=== PATIENT | male | born 1955 | race Caucasian/White ===

== ENCOUNTER 2022-01-02 00:06 | Day surgery (SDC) | payer MEDICARE, SELFPAY ==
[2021-12-30 18:43] VITALS: BMI 38.9
[2022-01-02] VITALS (15 sets, daily range): BP systolic 114–152; BP diastolic 63–94; PULSE 69–90; RESP 16–18; TEMP 36.3–36.6; O2SAT 95–97
[2022-01-02 10:29] LABS: Basophils Percent Auto 0.7 % (0.2-1.2); Eosinophils Absolute Auto 0.1 K/mm3 (0-0.3); Eosinophils Percent Auto 1.6 % (0-4.4); Hematocrit 52.3 % (42.0-52.0); Hemoglobin 17.9 g/dL (14.0-18.0); Immature Granulocyte Absolute 0.03 K/mm3 (0.00-0.031); Immature Granulocyte Percent A 0.5 % (0-0.5); Lymphocytes Percent Auto 28.1 % (18.3-44.2); Mean Corpuscular HGB Conc 34.2 g/dl (32-36); Mean Corpuscular Hemoglobin 30.7 pg (26-34); Mean Corpuscular Volume 89.7 fl (80-100); Mean Platelet Volume 10.2 fl (7.4-10.4); Monocytes Absolute Auto 0.5 K/mm3 (0.1-0.6); Monocytes Percent Auto 8.8 % (2.6-8.5); Neutrophils Absolute Auto 3.4 K/mm3 (1.3-6.7); Neutrophils Percent Auto 60.3 % (45.5-73.1); Platelet Count Result 216 k/mm3 (150-375); Red Blood Count 5.83 M/mm3 (4.6-6.20); Red Cell Distribution Width 13.2 % (11.5-14.5); White Blood Count 5.7 K/mm3 (4.5-10.0)
[2022-01-02 10:39] LABS: Anion Gap 9 mmol/L (8-16); Blood Urea Nitrogen 21 mg/dL (9-20); Calcium 9.2 mg/dL (8.4-10.2); Carbon Dioxide 24 mmol/L (22-30); Chloride 106 mmol/L (98-107); Estimated CRCL calculation 103 ml/min; Estimated Glomerular Filt Rate > 60; Glucose 160 mg/dL (65-110); Potassium 4.7 mmol/L (3.4-5.0); Sodium 139 mmol/L (137-145)
--- NOTE | 2022-01-02 13:48 | WPDCARDPROC ---
Cardiac Cath Procedure Note Date of procedure:: 01/02/22 Performing physician:: Remy Dowling MD Indication:: Ischemic heart disease with left ventricular systolic dysfunction nuclear stress testing suggesting progression of coronary disease Brief clinical history:: this is a 66-year-old man with coronary artery disease as well as AV node dysfunction. He was found to have angiographically mild coronary disease in 2013 along with LV systolic dysfunction and was given the diagnosis of takotsubo cardiomyopathy. In 2018 he presented with syncope and evidence of intermittent complete heart block and received a dual-chamber pacemaker. At that time his left ventricle had improved significantly with an ejection fraction of 48%. he now is reporting intermittent episodes of chest pain that are largely atypical sounding of angina however nuclear stress testing and echo show once again significant decline in LV systolic function and a follow-up angiogram has been recommended in that setting. Procedure Procedure performed:: Left ventriculogram coronary angiogram Sedation/Medication given:: fentanyl 50 mg Versed 2 mg case start time 1:23 p.m. case end time 1:40 p.m. Access site:: right femoral artery Estimated blood loss:: 25 cc Procedure note:: patient was brought to the cardiac catheterization lab in the postabsorptive state where the right femoral triangle was prepared in the normal fashion. Anesthesia was provided with 1% lidocaine infiltrated locally. Using the modified Seldinger technique a 5 [place] vascular sheath was placed into the femoral artery. After this I used a 5 [place] angled pigtail catheter to measure left-sided hemodynamics and to inject g in the EVANS projection. Following this the pigtail catheter was removed. A 5 [place] FL4 catheter was used to engage and inject the left coronary artery in multiple projections. A 5 [place] JR4 catheter was used to engage and inject the right coronary artery. The cineangiograms were then reviewed and the case was terminated. Angiogram was done of the femoral artery through the sheath after which I elected to have sheath removed removed after direct manual compression. 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 Findings:: Hemodynamics: Central aortic pressure is 136 over 74 left ventricle 136/5 end-diastolic pressure 16 there is no gradient on pullback across the aortic valve. Left ventricle: The left ventricle is severely dilated there is severe global hypocontractility in all visualized segments the ejection fraction I would visually estimate to be about 25%. The left main coronary artery is medium in caliber without significant lesion. The left anterior descending is a medium caliber artery extending down to the apex. The LAD has a proximal area of stenosis which is eccentric but it views were does well demonstrated represents 80-90% stenosis. There was CYN 3 flow in the LAD. And previous angiograms this was a mild nonobstructive lesion. Circumflex is a moderate caliber artery giving rise to the marginal branches and a posterior branch. . The largest obtuse marginal branch has a proximal stenosis of 70% to 80%. This is a large vessel which is free of disease distal to this lesion. The AV groove portion of the circumflex in the posterior branch are also free of significant stenosis. There is collateral filling from the distal circumflex to the RCA. The right coronary artery is medium in caliber and dominant to the posterior circulation there is 99% stenosis in the 2nd portion of the right coronary artery with CYN 2 flow distal to this. The RPDA is not ideally visualized because of the slow filling the RPL branches relatively good size. Conclusion:: 1. Severe 3 vessel coronary artery disease with high-grade proximal stenosis of the anterior descending, moderate stenosis of the
== END 2022-01-02 19:35 | disposition home or self-care (01) ==
PROVIDERS: PCP Internal Medicine; Visit Provider Specialist
PROC: 4A023N7 Measurement of Cardiac Sampling and Pressure, Left Heart, Percutaneous Approach (ICD-10-PCS; CPT 93452; principal; 2022-01-02 11:30)
DX: I25.118 Atherosclerotic heart disease of native coronary artery with other forms of angina pectoris (principal); I47.9 Paroxysmal tachycardia, unspecified; I11.0 Hypertensive heart disease with heart failure; I15.2 Hypertension secondary to endocrine disorders; I25.9 Chronic ischemic heart disease, unspecified; Z79.82 Long term (current) use of aspirin; I42.9 Cardiomyopathy, unspecified; E11.69 Type 2 diabetes mellitus with other specified complication; I47.1 Supraventricular tachycardia; E11.59 Type 2 diabetes mellitus with other circulatory complications; Z95.0 Presence of cardiac pacemaker; R53.83 Other fatigue; M19.90 Unspecified osteoarthritis, unspecified site; E78.5 Hyperlipidemia, unspecified; M79.7 Fibromyalgia; E07.9 Disorder of thyroid, unspecified; Z79.84 Long term (current) use of oral hypoglycemic drugs; E78.2 Mixed hyperlipidemia
CPT/HCPCS: 36415; 80048; 85025; 93458; C1887; C1894; J1644; J2250; J3010; J7040

== ENCOUNTER 2022-06-05 07:15 | Outpatient (RCR) | payer MEDICARE, SELFPAY ==
[2022-03-10 08:44] VITALS: BP 120/78; PULSE 97; O2SAT 98
[2022-03-10 08:45] VITALS: PULSE 97
== END 2022-06-05 08:40 | disposition home or self-care (01) ==
LOC: ANHCPREHAB 07:15
PROVIDERS: PCP Internal Medicine; Visit Provider Internal Medicine Cardiovascular Disease
DX: Z95.5 Presence of coronary angioplasty implant and graft (principal)
CPT/HCPCS: 93798

== ENCOUNTER 2023-03-05 07:30 | Outpatient (RCR) | payer MEDICARE, SELFPAY ==
[2022-12-08 14:54] VITALS: BP 142/72; PULSE 75; O2SAT 100
== END 2023-03-05 14:26 | disposition home or self-care (01) ==
LOC: ANHCPREHAB 07:30
PROVIDERS: PCP Internal Medicine; Visit Provider Internal Medicine Cardiovascular Disease
DX: Z95.5 Presence of coronary angioplasty implant and graft (principal)
CPT/HCPCS: 93798

== ENCOUNTER 2025-02-18 12:00 | Outpatient (RCR) | payer MEDICARE, SELFPAY ==
[2024-10-31 15:30] VITALS: PULSE 110
== END 2025-02-23 07:17 | disposition home or self-care (01) ==
LOC: ANHCPREHAB 12:00
PROVIDERS: PCP Internal Medicine; Visit Provider Internal Medicine Cardiovascular Disease
DX: Z98.61 Coronary angioplasty status (principal)
CPT/HCPCS: 93798